=== PATIENT | male | born 1935 | race Caucasian/White ===

== ENCOUNTER 2017-02-16 14:34 | Inpatient (IN) | payer MEDICARE, MEDICAID ==
[2017-02-16 14:42] VITALS: BMI 26.6
[2017-02-16 15:15] LABS: ADD MANUAL DIFF? NO
[2017-02-16] MEDS ORDERED: Sodium Chloride 0.9% 1,000 ML IV SCH ×2 (15:15→18:45)
[2017-02-16 15:36] LABS: BASO # 0.02 K/mm3 (0.0-2.0); BASO % 0.3 % (0.0-3.0); EOS # 0.1 (0.0-0.7); EOS % 1.2 % (1.5-5.0); GRAN # 4.01 (1.4-6.5); GRAN % 69.5 % (50.0-68.0); HEMATOCRIT 24.7 % (42.0-52.0); LYMPH # 1.3 (1.2-3.4); LYMPH % 22.8 % (22.0-35.0); MEAN CELL VOLUME 90.8 fL (80.0-105.0); MEAN CORPUSCULAR HEMOGLOBIN 28.3 pg (25.0-35.0); MEAN CORPUSCULAR HGB CONC 31.2 g/dl (31.0-37.0); MEAN PLATELET VOLUME 9.9 fl (7.0-11.0); MONO # 0.4 (0.1-0.6); MONO % 6.2 % (1.0-6.0); PLATELET COUNT 269 10^3/uL (120.0-450.0); RED CELL DISTRIBUTION WIDTH 14.1 % (11.5-14.5); WHITE BLOOD COUNT 5.8 10^3/ul (4.5-11.0)
--- NOTE | 2017-02-16 15:44 | CT ---
PROCEDURE: CT HEAD WITHOUT CONTRAST. HISTORY: syncope COMPARISON: None available. TECHNIQUE: Axial computed tomography images were obtained through the head/brain without intravenous contrast. Radiation dose: Total exam DLP = 724 mGy-cm. This CT exam was performed using one or more of the following dose reduction techniques: Automated exposure control, adjustment of the mA and/or kV according to patient size, and/or use of iterative reconstruction technique. FINDINGS: HEMORRHAGE: No intracranial hemorrhage. BRAIN: No mass effect or edema. No atrophy or chronic microvascular ischemic changes. VENTRICLES: Unremarkable. No hydrocephalus. CALVARIUM: Unremarkable. PARANASAL SINUSES: Unremarkable as visualized. No significant inflammatory changes. MASTOID AIR CELLS: Unremarkable as visualized. No inflammatory changes. OTHER FINDINGS: None. IMPRESSION: No acute finding
[2017-02-16 15:46] LABS: ALB/GLOB RATIO 1.1 (1.1-1.8); ALKALINE PHOSPHATASE 75 U/L (38-133); ALT/SGPT 25 U/L (7-56); AST/SGOT 23 U/L (15-59); BILIRUBIN,TOTAL 0.5 mg/dL (0.2-1.3); BLOOD UREA NITROGEN 24 mg/dL (7-21); CALCIUM 9.1 mg/dL (8.4-10.5); CARBON DIOXIDE 29 mmol/L (21-33); CHLORIDE 102 mmol/L (98-107); GFR AFRICAN-AMERICAN 47; GLUCOSE,RANDOM 119 mg/dL (70-110); MAGNESIUM 2.1 mg/dL (1.7-2.2); POTASSIUM 4.4 mmol/L (3.6-5.0); SODIUM 137 mmol/L (132-148); TOTAL PROTEIN 7.5 g/dL (5.8-8.3)
[2017-02-16 16:00] LABS: TROPONIN I < 0.01 ng/mL
--- NOTE | 2017-02-16 16:38 | ED PDOC ---
Arrival/HPI - General Chief Complaint: Syncope Time Seen by Provider: 02/16/17 14:48 - History of Present Illness Narrative History of Present Illness (Text): 02/16/17 16:40 81 year old male whose past medical history includes coronary bypass approximately 10 years ago, cardiac stents, GI bleed, presents to the emergency department with laila for witnessed syncopal episode at daycare prior to arrival. Grandson states he was sitting in the car when the episode occurred. Patient denies any symptoms prior to the episode. Grandson states he saw a doctor for the first time yesterday and his hemoglobin was 8+. Patient has history of GI bleed Time/Duration: Prior to Arrival Symptom Onset: Sudden Symptom Course: Resolved Associated Symptoms (Text): None Past Medical History - Provider Review Nursing Documentation Reviewed: Yes - Infectious Disease Hx of Infectious Diseases: None - Cardiac Hx Hypertension: Yes - HEENT Hx Deafness: Yes - Hematological/Oncological Hx Anemia: Yes - Psychiatric Hx Substance Use: No Family/Social History - Physician Review Nursing Documentation Reviewed: Yes Family/Social History: Unknown Family HX Smoking Status: Unknown If Ever Smoked Hx Alcohol Use: No Hx Substance Use: No Allergies/Home Meds Allergies/Adverse Reactions: Allergies No Known Allergies Allergy (Verified 02/16/17 23:35) No Known Allergies Home Medications: Home Meds Medication Instructions Recorded Confirmed Unobtainable 02/16/17 02/16/17 Review of Systems - Physician Review All systems were reviewed & negative as marked: Yes - Review of Systems Respiratory: absent: SOB Cardiovascular: Syncope. absent: Chest Pain Neurological: absent: Headache, Dizziness Physical Exam Vital Signs Reviewed: Yes Vital Signs Temp Pulse Resp BP Pulse Ox 02/16/17 20:30 98.2 F 67 18 134/69 02/16/17 20:18 98.2 F 65 16 131/60 02/16/17 14:35 101 H 18 94/48 L 95 Blood Pressure: Normal Pulse: Regular Respiratory Rate: Normal Appearance: Positive for: Well-Appearing, Non-Toxic, Comfortable Pain Distress: None Mental Status: Positive for: Alert and Oriented X 3 Finger Stick Blood Glucose: 159 - Systems Exam Head: Present: Atraumatic, Normocephalic Pupils: Present: PERRL Extroacular Muscles: Present: EOMI Conjunctiva: Present: Normal Mouth: Present: Moist Mucous Membranes Neck: Present: Normal Range of Motion Respiratory/Chest: Present: Clear to Auscultation, Good Air Exchange, Other ( Midline surgical scar). No: Respiratory Distress, Accessory Muscle Use Cardiovascular: Present: Regular Rate and Rhythm, Normal S1, S2. No: Murmurs Abdomen: Present: Normal Bowel Sounds. No: Tenderness, Distention, Peritoneal Signs Back: Present: Normal Inspection Upper Extremity: Present: Normal Inspection. No: Cyanosis, Edema Lower Extremity: Present: Normal Inspection. No: Edema Neurological: Present: GCS=15, CN II-XII Intact, Speech Normal Skin: Present: Warm, Dry, Normal Color. No: Rashes Psychiatric: Present: Alert, Oriented x 3, Normal Insight, Normal Concentration Medical Decision Making ED Course and Treatment: Impression: 81 year old male whose past medical history includes cardiac stents , GI bleed, presents to the emergency department with witnessed syncopal episode at daycare prior to arrival. Differential Diagnosis included but are not limited to: Plan: -- CT head, EKG, Chest X-ray -- Zofran -- IV fluids -- Labs -- Reassess and disposition Progress Notes: CT Head Shearer Helper: Ciro Mclean MD IMPRESSION: No acute findings - Lab Interpretations Lab Results: 02/16/17 14:50 02/16/17 14:50 Lab Results 02/16/17 16:05: Blood Type Confirm O POSITIVE 02/16/17 15:25: Blood Type O POSITIVE, Antibody Screen Negative, Crossmatch See Detail, BBK History Checked No verified bt 02/16/17 14:50: Sodium 137, Potassium 4.4, Chloride 102, Carbon Dioxide 29, Anion Gap 10, BUN 24 H, Creatinine 1.7 H, Est GFR ( Amer) 47, Est GFR ( Non-Af Amer) 39, Random Glucose 119 H, Calcium 9.1, Magnesium 2.1, Total Bilirubin 0.5, AST 23, ALT 25, Alkaline Phosphatase 75, Lactate Dehydrogenase 388, Total Creatine Kinase 81, Troponin I < 0.01, Total Protein 7.5, Albumin 4.0 , Globulin 3.5, Albumin/Globulin Ratio 1.1 02/16/17 14:50: WBC 5.8, RBC 2.72 L, Hgb 7.7 L, Hct 24.7 L, MCV 90.8, MCH 28.3, MCHC 31.2, RDW 14.1, Plt Count 269, MPV 9.9, Gran % 69.5 H, Lymph % (Auto) 22.8 , [place] % (Auto) 6.2 H, Eos % (Auto) 1.2 L, Baso % (Auto) 0.3, Gran # 4.01, Lymph # 1.3, Alger # 0.4, Eos # 0.1, Baso # 0.02 02/16/17 14:48: Iron 38 L, TIBC 364, % Saturation 10 L - RAD Interpretation Radiology Orders: 02/16/17 14:49 HEAD W/O CONTRAST [CT] Stat CHEST PORTABLE [RAD] Stat Sales Order Clerk: Radiologist - EKG Interpretation EKG Interpretation (Text): EKG shows NSR at 60 BPM with PVC's, otherwise normal, interpreted by me. Interpreted by ED Physician: Yes Type: 12 lead EKG - Medication Orders Current Medication Orders: Acetaminophen (Tylenol 325mg Tab) 650 mg PO Q6H PRN PRN Reason: Fever >100.4 F Sodium Chloride (Sodium Chloride 0.9%) 1,000 mls @ 70 mls/hr IV .[id number] [facility] Last Admin: 02/17/17 03:51 Dose: 70 mls/hr Ondansetron HCl (Zofran Inj) 4 mg IVP Q6H PRN PRN Reason: Nausea/Vomiting Discontinued Medications Sodium Chloride (Sodium Chloride 0.9%) 1,000 mls @ 100 mls/hr IV .Q10H [facility] Last Admin: 02/16/17 15:28 Dose: 100 mls/hr Ondansetron HCl (Zofran Inj) 8 mg IVP STAT STA Stop: 02/16/17 15:08 Last Admin: 02/16/17 15:28 Dose: 8 mg - Scribe Statement The provider has reviewed the documentation as recorded by the Ewa Sutton Provider Scribe Attestation: All medical record entries made by the Ewa were at my direction and personally dictated by me. I have reviewed the chart and agree that the record accurately reflects my personal performance of the history, physical exam, medical decision making, and the department course for this patient. I have also personally directed, reviewed, and agree with the discharge instructions and disposition. Disposition/Present on Arrival - Present on Arrival Any Indicators Present on Arrival: No History of DVT/PE: No History of Uncontrolled Diabetes: No Urinary Catheter: No History of Decub. Ulcer: No History Surgical Site Infection Following: None - Disposition Have Diagnosis and Disposition been Completed?: Yes Diagnosis: Syncope, Anemia Disposition: HOSPITALIZED Disposition Time: 16:30 Condition: STABLE
--- NOTE | 2017-02-16 17:58 | RAD ---
HISTORY: Syncope. Portable study 16:32. COMPARISON: No prior. FINDINGS: LUNGS: No active pulmonary disease. PLEURA: No significant pleural effusion identified, no pneumothorax apparent. CARDIOVASCULAR: Cardiomegaly. No evidence of acute, significant cardiovascular disease. OSSEOUS STRUCTURES: No significant abnormalities. VISUALIZED UPPER ABDOMEN: Normal. OTHER FINDINGS: None. IMPRESSION: No active disease.
[2017-02-16 20:08] LABS: IRON 38 ug/dL (45-180)
[2017-02-17 01:54] LABS: PH,URINE 6.5 (4.7-8.0); URINE BILIRUBIN NEGATIVE (NEGATIVE); URINE BLOOD NEGATIVE (NEGATIVE); URINE GLUCOSE (UA) NEGATIVE (NEGATIVE); URINE KETONE NEGATIVE (NEGATIVE); URINE LEUKOCYTE ESTERASE NEGATIVE Leu/uL (NEGATIVE); URINE PROTEIN NEGATIVE mg/dL (<30 mg/dL); URINE UROBILINOGEN 0.2 E.U./dL (<1 E.U./dL)
[2017-02-17 02:00] LABS: URINE APPEARANCE CLEAR (CLEAR); URINE COLOR YELLOW (YELLOW)
[2017-02-17 07:45] LABS: HEMATOCRIT 25.2 % (42.0-52.0); MEAN CELL VOLUME 88.7 fL (80.0-105.0); MEAN CORPUSCULAR HEMOGLOBIN 28.2 pg (25.0-35.0); MEAN CORPUSCULAR HGB CONC 31.7 g/dl (31.0-37.0); MEAN PLATELET VOLUME 9.3 fl (7.0-11.0); RED CELL DISTRIBUTION WIDTH 15.4 % (11.5-14.5); WHITE BLOOD COUNT 5.5 10^3/ul (4.5-11.0)
[2017-02-17 08:04] LABS: BLOOD UREA NITROGEN 22 mg/dL (7-21); CALCIUM 8.5 mg/dL (8.4-10.5); CARBON DIOXIDE 27 mmol/L (21-33); CHLORIDE 107 mmol/L (95-110); GFR AFRICAN-AMERICAN > 60; GLUCOSE,RANDOM 87 mg/dL (70-110); POTASSIUM 5.1 mmol/L (3.6-5.0); SODIUM 139 mmol/L (132-148)
--- NOTE | 2017-02-17 08:18 | CON ---
DATE: 02/17/2017 INDICATIONS: Syncope, severe anemia. HISTORY OF PRESENT ILLNESS: This is an 81-year-old Montenegrin speaking male admitted yesterday through the Emergency Room after he passed out in his car. Apparently he has known severe anemia, but has had no workup as yet. He was found to have a hemoglobin of 7. Rectal exam was negative in the ER. He was transfused 2 units of blood. Today, he is in the telemetry unit. There is no chest pain, shortness of breath, orthopnea, PND, palpitations, edema. No fever , chills, cough, sputum production or hemoptysis. No abdominal pain, nausea, vomiting, diarrhea, constipation, or melena. PAST MEDICAL HISTORY: Limited due to the Montenegrin language. He has known coronary artery disease and remote coronary bypass operation, he has had a stent in the past. He has a history of hypertension and severe anemia. There is no history of rheumatic fever, congestive heart failure, myocardial infarction, diabetes, stroke, TIA, or gout. MEDICATIONS: On admission are unknown at this time. He is getting Tylenol, Zofran and IV fluids. ALLERGIES: There are no medication allergies reported. SOCIAL HISTORY: He does not smoke. He does not drink. He lives at home with his family. He is ambulatory. REVIEW OF SYSTEMS: A 10-point review of systems is unavailable because of language barrier. PHYSICAL EXAMINATION: GENERAL: He is a well-developed male in no acute distress, lying in bed on telemetry. VITAL SIGNS: He is in sinus rhythm to sinus bradycardia at 61 beats per minute , afebrile. Blood pressure 119/51, respirations 18-20, O2 sat 93%-95% on room air. HEENT: Reveals no neck vein distention, thyromegaly, or carotid bruits. Mucous membranes are moist. Conjunctivae pale. NECK: Supple. LUNGS: Min clear. HEART: Revealed normal first and second heart sounds. ABDOMEN: Soft, bowel sounds present. No mass, organomegaly, tenderness, rebound, guarding, CVA tenderness or palpable abdominal aortic aneurysm. EXTREMITIES: Revealed no cyanosis, clubbing, or edema. NEUROLOGIC: He is awake and alert. PSYCHIATRIC: Normal as to mood and affect. SKIN: Warm and dry. No rash or cellulitis. LABORATORY AND IMAGING: Chest x-ray, a portable study, reveals no active disease. EKG demonstrates regular sinus rhythm, PVCs, right ventricular conduction delay. CT scan of the head reveals no acute disease. White count normal, platelet count normal, hemoglobin 7.7, hematocrit 24.7 pre-transfusion. Electrolytes: BUN unremarkable, creatinine 1.7, blood sugar 119. LFTs unremarkable. CK 81, troponin less than 0.01. Urinalysis is unremarkable. IMPRESSION: The patient is an 81-year-old man with known coronary bypass surgery, a limited historian because of language, admitted with syncope, found to have severe anemia which is somewhat chronic. He has received 2 units blood transfusion. He is on telemetry. No arrhythmia has been demonstrated. We should attempt to get old records. I will order an echocardiogram. Stool should be checked for occult blood. We will check postural vital signs. He will have a neuro workup, he should have a GI workup. We will monitor H and H, as well as labs and I and O. I will follow along with you. I will make additional recommendations based on his clinical course. Suman Arellano MD cc: [id number] TT: 02/17/2017 08:17:24 Confirmation # [id number] Dictation # [id number] jn MTDHarshil
[2017-02-17 10:59] LABS: ADD MANUAL DIFF? NO
[2017-02-17 11:00] LABS: BASO # 0.01 K/mm3 (0.0-2.0); BASO % 0.2 % (0.0-3.0); EOS # 0.1 (0.0-0.7); EOS % 0.9 % (1.5-5.0); GRAN # 4.11 (1.4-6.5); GRAN % 77.6 % (50.0-68.0); HEMATOCRIT 26.7 % (42.0-52.0); LYMPH # 0.8 (1.2-3.4); LYMPH % 14.9 % (22.0-35.0); MEAN CELL VOLUME 89.3 fL (80.0-105.0); MEAN CORPUSCULAR HEMOGLOBIN 27.8 pg (25.0-35.0); MEAN CORPUSCULAR HGB CONC 31.1 g/dl (31.0-37.0); MEAN PLATELET VOLUME 9.5 fl (7.0-11.0); MONO # 0.3 (0.1-0.6); MONO % 6.4 % (1.0-6.0); PLATELET COUNT 199 10^3/uL (120.0-450.0); RED CELL DISTRIBUTION WIDTH 15.6 % (11.5-14.5); WHITE BLOOD COUNT 5.3 10^3/ul (4.5-11.0)
[2017-02-17 12:02] LABS: FOLATE 12.7 ng/mL
--- NOTE | 2017-02-17 14:13 | CARD ---
APPROVED REPORT EKG Measurement Heart [id number] CT 154P9 [id number] <Conclusion> Sinus rhythm with occasional premature ventricular complexes RSR' or QR pattern in V1 suggests right ventricular conduction delay Borderline ECG
--- NOTE | 2017-02-17 14:32 | CON ---
DATE: 02/17/2017 CHIEF COMPLAINT: Syncope. HISTORY OF PRESENT ILLNESS: An 81-year-old Iranian-speaking man with past medical history of hyperte nsion, history of anemia, history of coronary bypass, history of coronary artery disease status post stents, came in because he had passed out in his car. He was found to have had hemoglobin of 7.7 and was transfused 2 units. Currently hemoglobin today is 8.3. He denied any focal weakness, paresthes ias in the extremities. He is able to follow commands. CT head showed no acute intracranial abnorma lities. PAST MEDICAL HISTORY: He has history of known coronary artery disease, status post CABG and stent, h istory of hypertension, anemia. SOCIAL HISTORY: No illicit drug use, smoking or ETOH abuse. ALLERGIES: No known drug allergies. CURRENT MEDICATIONS: Reviewed via nurse's reconciliation sheet. REVIEW OF SYSTEMS: A 14-point review of systems is negative except for the HPI. PHYSICAL EXAMINATION: VITAL SIGNS: Temperature of 97.9, pulse rate 77, blood pressure 130/65, respiratory rate of 18. GENERAL: The patient is sitting up in bed in no acute distress. HEENT: Atraumatic, normocephalic. PERRLA. Extraocular muscles intact. NECK: Supple, no JVD, no adenopathy noted. LUNGS: Clear to auscultation. No adventitious sounds. HEART: S1, S2, normal rate and rhythm. No murmurs, rubs, or gallops. ABDOMEN: Soft, nontender, nondistended. Bowel sounds are present. EXTREMITIES: No clubbing, no cyanosis. Peripheral pulses 2+ felt bilaterally. NEUROLOGIC: The patient is alert, oriented to person, place, month and year. Speech is fluent, with out any errors. Cranial nerves II through XII are intact. MOTOR: Moves all extremities equally. Toes downgoing bilaterally. DTRs 2+ throughout and 1 at the ankles. COORDINATION: Rdvidz-pv-sdyd intact. GAIT: Deferred for now. LABORATORIES: Hemoglobin is 8.3, hematocrit 26.7, platelet count of 199. Sodium is 139, potassium 5 .1, chloride of 107, carbon dioxide 27, BUN of 22, creatinine 1.2, random glucose of 87. ASSESSMENT AND PLAN: This is an 85-gdeh-qqg-male history of coronary artery disease, status post cor onary artery bypass graft and cardiac stents, hypertension, anemia who presented with syncopal episod e where he was passed out in the car, found to have a hemoglobin of 7.7, was transfused 2 units of bl ood, now 8.3 today. He also has had a drop in systolic and diastolic blood pressures. Syncope is li tavia secondary to transient cerebral hypoperfusion to the brain, superimposed on underlying severe an emia. He has also iron deficiency anemia. AT THIS TIME, RECOMMEND: 1. IV hydration. 2. Evaluate the cause for his type of anemia and monitor his H and H. 3. Continue current present cardiac management and monitor his electrolytes accordingly. Once again, thank you for this consult. No further neurological workup needed at this time. Sean Hoffman MD cc: [id number] TT: 02/17/2017 14:31:50 Confirmation # [id number] Dictation # [id number] jn
--- NOTE | 2017-02-17 20:06 | HP ---
HISTORY OF PRESENT ILLNESS: This is 81-year-old male who was examined at his bedside. His case was reviewed in detail with his nurse, Adrienne Brenner. The patient was seen earlier today by Dr. Suman Arellano from cardiology and the patient is awaiting a 2D echocardiogram of the heart. He presented t o the [facility] ER after having a syncopal episode while sitting in his grandson's car a nd denying any chest pain, palpitation or shortness of breath. In the [facility] ER, he was noted to have advanced anemia which on further blood testing was consistent with iron deficiency and the patient has had no GI workup in his recent past. His stool was guaiac negative in the ER. H e denies any hematemesis or melena and also was noted to be hypotensive and was treated with IV fluid s. On admission, his hemoglobin was 7. He received 2 units of blood with IV fluids. His hemoglobin today is 8.3 and the nursing staff reports he has not had any hematemesis, melena, or bowel movement s or bright red blood per rectum. PAST MEDICAL HISTORY: The patient has a past medical history of atherosclerotic heart disease, statu s post coronary artery bypass and coronary stents. He has a history of chronic hypertension. OUTPATIENT MEDICATIONS: There were no reports of any outpatient medication listed. ALLERGIES: He denies any allergies to medication. SOCIAL HISTORY: He is a current nondrinker, nonsmoker, non-IV drug misuser. He is a retired gentlem an and currently is receiving IV fluids, oral Tylenol and IV Zofran p.r.n. nausea and vomiting. REVIEW OF SYSTEMS: HEAD: Recent syncope. EYES: No change in visual acuity. EARS: No hearing loss. THROAT: No swallowing difficulty. NECK: No stiffness. CARDIOVASCULAR: He has a history of atherosclerotic heart disease, coronary artery bypass and stents . PULMONARY: No cough, no hemoptysis. GASTROINTESTINAL: No reports of hematemesis, melena, or GI bleeding. GENITOURINARY: No dysuria. SKIN: Without rash. NEUROLOGICAL: Syncope. VASCULAR: No reports of claudication. ENDOCRINE: No knowledge of diabetes mellitus. FAMILY HISTORY: Noncontributory. PHYSICAL EXAMINATION: GENERAL: At present, the patient is alert, lying in his bed in a normal sinus rhythm on the surveillance system monitor. VITAL SIGNS: Temperature 97.9, respirations 18, pulse 77, and blood pressure 138/65 with a pulse ox of 94% on room air. HEENT: Normocephalic, atraumatic. Eyes: No icterus. Ears clear. Throat not injected. NECK: Supple. HEART: Regular S1, S2. LUNGS: Clear. ABDOMEN: Soft, without palpable organomegaly, no rebound, no guarding, no tenderness. EXTREMITIES: No clubbing, no cyanosis, no edema. SKIN: Without rash, now with good turgor. VASCULAR: Legs warm to touch. PSYCHOLOGICAL: Alert. NEUROLOGIC: Intact. GENITOURINARY: Rectal exam and stool for occult blood done in the ER by Dr. Adalid Martinez is gua iac negative. CURRENT LABORATORY DATA: Admission white count 5800, hemoglobin 7.7, hematocrit 24.7, platelets 269, 000. Currently, white count 5300, hemoglobin 8.3, hematocrit 26.7, platelets 199,000. Sodium 139, K 5.1, chloride 107, bicarbonate 27, BUN 22, creatinine 1.2, random blood sugar is 87. Iron level was low at 38. TIBC 364, percent saturation 10 low, ferritin 12.6. Bilirubin 0.5, AST 23, ALT 25, cain line phosphatase 75. CPK normal at 81, troponin less than 0.01. B12 normal 752. Folic acid normal at 12.7. Urinalysis unremarkable. Chest x-ray showed no active disease. Head CT showed no acute fi ndings. IMPRESSION: An 81-year-old male status post a syncopal episode with history of atherosclerotic heart disease and also with iron deficiency anemia with no knowledge of recent GI workup. PLAN: To await cardiac workup, consultation by Dr. Suman Arellano. Neuro evaluation by Dr. Sean marques. I will place a GI consultation with Dr. Quiñones. The patient will receive an additional 2 uni ts of blood. I have instructed his nurse to check stool for occult blood. The patient will have a C BC and basic metabolic panel in the a.m. His IV fluids have been discontinued. He will receive 2 ad ditional units of packed red blood cells. He is awaiting a serum immunoelectrophoresis panel. He re guerrero on a heart healthy diet, fall risk protocol, neuro checks q. shift and physical therapy evaluat ion. The plan is that the patient will return home with his grandson with whom he lives upon clearan ce by GI, neuro and cardiology, and his overall prognosis remains guarded at present. Greater than 60 minutes was spent in the care, coordination of care, review of care for this new admi ssion. All of the above was reviewed with the patient and his nursing staff and co-consultants today . Sonia Larson MD cc: [phone] TT: 02/17/2017 20:06:14 mn
--- NOTE | 2017-02-18 07:33 | CP.PCM.PN ---
Subjective - Date & Time of Evaluation Date of Evaluation: 02/18/17 Time of Evaluation: 07:00 - Subjective Subjective: Stable on 2R,S/P 3rd and 4th unit RBC's. No CP or SOB. + dizzy at times. V/S noted. PE: Lungs: clear Cor.: S1S2, 2/6, SYLVESTER Abd.: soft Ext.: no edema Neuro.; alert Objective - Vital Signs/Intake and Output Vital Signs (last 24 hours): Temp Pulse Resp BP Pulse Ox 98.8 F 60 19 160/81 H 94 L 02/18/17 06:00 02/18/17 06:00 02/18/17 06:00 02/18/17 06:00 02/18/17 06:00 Intake and Output: 02/18/17 02/18/17 06:59 18:59 Intake Total 2763 Output Total 1100 Balance 1663 - Medications Medications: Current Medications Acetaminophen (Tylenol 325mg Tab) 650 mg PO Q6H PRN PRN Reason: Fever >100.4 F Ondansetron HCl (Zofran Inj) 4 mg IVP Q6H PRN PRN Reason: Nausea/Vomiting - Labs Labs: 02/17/17 10:57 02/17/17 07:35 Assessment and Plan - Assessment and Plan (Free Text) Plan: Assessment: Syncope Anemia CAD/CABG HBP Plan: Will check echo Await AM labs Check postural V/S Fall Risk: Ambulate with assistance As per GI, neuro., Dr. Larson
[2017-02-18 08:03] LABS: HEMATOCRIT 35.1 % (42.0-52.0); MEAN CELL VOLUME 87.5 fL (80.0-105.0); MEAN CORPUSCULAR HEMOGLOBIN 27.7 pg (25.0-35.0); MEAN CORPUSCULAR HGB CONC 31.6 g/dl (31.0-37.0); MEAN PLATELET VOLUME 9.6 fl (7.0-11.0); RED CELL DISTRIBUTION WIDTH 16.1 % (11.5-14.5); WHITE BLOOD COUNT 4.8 10^3/ul (4.5-11.0)
[2017-02-18 08:24] LABS: BLOOD UREA NITROGEN 16 mg/dL (7-21); CALCIUM 9.4 mg/dL (8.4-10.5); CARBON DIOXIDE 30 mmol/L (21-33); CHLORIDE 105 mmol/L (98-107); GFR AFRICAN-AMERICAN > 60; GLUCOSE,RANDOM 90 mg/dL (70-110); POTASSIUM 4.7 mmol/L (3.6-5.0); SODIUM 141 mmol/L (132-148)
--- NOTE | 2017-02-18 08:26 | CARD ---
APPROVED REPORT EXAM: Two-dimensional and M-mode echocardiogram with Doppler and color Doppler. Other Information Quality : AverageRhythm : INDICATION Syncope 2D DIMENSIONS IVSd1.1 (0.7-1.1cm)LVDd4.9 (3.9-5.9cm) LVOT Diameter1.9 (1.8-2.4cm)PWd1.1 (0.7-1.1cm) LVDs3.1 (2.5-4.0cm)FS (%) 36.5 % LVEF (%)66.0 (>50%) M-Mode DIMENSIONS Left Atrium (MM)4.00 (2.5-4.0cm)Aortic Root3.80 (2.2-3.7cm) Aortic Cusp Exc.1.60 (1.5-2.0cm) Aortic Valve AoV Peak Fmrsgzeu113.0cm/sAoV VTI45.0cmAO Peak GR.17mmHg LVOT Peak Ipihowsv050.0cm/sLVOT VTI31.40cmAO Mean GR.9mmHg CHATA (VMAX)2.13lj1FWC (VTI)1.65zb3PR P 1/2 Tksu200hv Mitral Valve MV E Zoqaahhe833.0cm/sMV A Ofvobgsv024.0cm/sE/A ratio0.9 TDI Lateral E' Peak V7.52cm/sMedial E' Peak V7.10cm/sE/Lateral E'13.4 E/Medial E'14.2 Tricuspid Valve TR Peak Navysfam127wv/sRAP ZFBUPGIL84cmXfVW Peak Gr.28mmHg RYLW79lhLo LEFT VENTRICLE The left ventricle is normal size. There is normal left ventricular wall thickness. The left ventricular function is normal. The left ventricular ejection fraction is within the normal range. There is normal LV segmental wall motion. RIGHT VENTRICLE The right ventricle is normal size. ATRIA The left atrium size is normal. The right atrium size is normal. The interatrial septum is intact with no evidence for an atrial septal defect. AORTIC VALVE The aortic valve is moderately calcified. There is mild aortic regurgitation. MITRAL VALVE The mitral valve is mildly thickened but opens well. Mitral annular calcification is moderate. Mitral regurgitation is trace. TRICUSPID VALVE The tricuspid valve is normal in structure. There is trace tricuspid regurgitation. PULMONIC VALVE The pulmonic valve is not well visualized. GREAT VESSELS The aortic root is normal in size. PERICARDIAL EFFUSION There is no pericardial effusion. <Conclusion> The left ventricle is normal size. There is normal left ventricular wall thickness. The left ventricular function is normal. The aortic valve is moderately calcified. Aortic sclerosis vs. mild . There is mild aortic regurgitation.
--- NOTE | 2017-02-18 14:10 | CP.PCM.CON ---
<Jt Rivero - Last Filed: 02/18/17 14:06> History of Present Illness - History of Present Illness History of Present Illness: GI consult for Dr. Quiñones 81 year old male whose past medical history includes coronary bypass approximately 10 years ago, cardiac stents, GI bleed, presents [facility] with syncopal episode at daycare. Per records, he was sitting in the car when the episode occurred. Patient denies any symptoms prior to the episode. Patient has history of GI bleed. Upon admission hbg was 8. Transfused. Hgb imporved to 11. Pt denies F/C/N/V/D/CP/SOB/hematochezia/hematemesis/melena/hematuria. Review of Systems - Review of Systems Review of Systems: See HPI Past Patient History - Infectious Disease Hx of Infectious Diseases: None - Past Social History Smoking Status: Unknown If Ever Smoked - CARDIAC Hx Cardiac Disorders: Yes (CABG, stents) Hx Hypertension: Yes - PULMONARY Hx Respiratory Disorders: No - NEUROLOGICAL Hx Neurological Disorder: Yes Hx Dizziness: Yes - HEENT Hx Deafness: Yes - RENAL Hx Chronic Kidney Disease: No - ENDOCRINE/METABOLIC Hx Endocrine Disorders: Yes Hx Hypothyroidism: Yes - HEMATOLOGICAL/ONCOLOGICAL Hx Anemia: Yes - INTEGUMENTARY Hx Dermatological Problems: No - MUSCULOSKELETAL/RHEUMATOLOGICAL Hx Musculoskeletal Disorders: Yes Hx Arthritis: Yes Hx Falls: Yes Hx Unsteady Gait: Yes - GASTROINTESTINAL Hx Gastrointestinal Disorders: Yes (Constipation) - GENITOURINARY/GYNECOLOGICAL Hx Genitourinary Disorders: No - PSYCHIATRIC Hx Substance Use: No - SURGICAL HISTORY Hx Surgeries: Yes Hx Coronary Stent: Yes Hx Open Heart Surgery: Yes Meds Allergies/Adverse Reactions: Allergies Allergy/AdvReac Type Severity Reaction Status Date / Time No Known Allergies Allergy No Known Verified 02/16/17 23:35 Allergies - Medications Medications: Current Medications Acetaminophen (Tylenol 325mg Tab) 650 mg PO Q6H PRN PRN Reason: Fever >100.4 F Ondansetron HCl (Zofran Inj) 4 mg IVP Q6H PRN PRN Reason: Nausea/Vomiting Physical Exam - Constitutional Appears: No Acute Distress - Head Exam Head Exam: ATRAUMATIC, NORMAL INSPECTION, NORMOCEPHALIC - Eye Exam Eye Exam: EOMI, Normal appearance, PERRL Pupil Exam: NORMAL ACCOMODATION, PERRL - ENT Exam ENT Exam: Mucous Membranes Moist, Normal Exam - Neck Exam Neck exam: Positive for: Normal Inspection - Respiratory Exam Respiratory Exam: Clear to Auscultation Bilateral, NORMAL BREATHING PATTERN - Cardiovascular Exam Cardiovascular Exam: REGULAR RHYTHM - GI/Abdominal Exam GI & Abdominal Exam: Normal Bowel Sounds, Soft. absent: Distended, Tenderness - Rectal Exam Rectal Exam: NORMAL INSPECTION. absent: Black Stool, Bloody Stool, Hemorrhoids , Fecal Impaction Additional comments: Brown stool, no mass, normal sphincter tone. - Exam Exam: NORMAL INSPECTION - Extremities Exam Extremities exam: Positive for: full ROM, normal inspection - Back Exam Back exam: NORMAL INSPECTION - Neurological Exam Neurological exam: Alert, CN II-XII Intact, Normal Gait, Oriented x3, Reflexes Normal - Psychiatric Exam Psychiatric exam: Normal Affect, Normal Mood - Skin Skin Exam: Dry, Intact, Normal Color, Warm Results - Vital Signs Recent Vital Signs: Last Vital Signs Temp 97 F L 02/18/17 11:21 Pulse 55 L 02/18/17 11:21 Resp 14 02/18/17 11:21 BP 146/88 02/18/17 11:21 Pulse Ox 94 L 02/18/17 06:00 - Labs Result Diagrams: 02/18/17 07:30 02/18/17 07:30 Labs: Laboratory Results - last 24 hr 02/18/17 02/18/17 07:30 07:30 WBC 4.8 RBC 4.01 Hgb 11.1 L Hct 35.1 L MCV 87.5 MCH 27.7 MCHC 31.6 RDW 16.1 H Plt Count 212 MPV 9.6 Sodium 141 Potassium 4.7 Chloride 105 Carbon Dioxide 30 Anion Gap 11 BUN 16 Creatinine 0.9 Est GFR ( Amer) > 60 Est GFR (Non-Af Amer) > 60 Random Glucose 90 Calcium 9.4 Assessment & Plan - Assessment and Plan (Free Text) Assessment: 81 m with pmh GI bleed, CAD s/p CABG, PCI and HTN came with Anemia with syncopal episode -MOnitor H/H transfuse as needed -CT w PO contrast -EGD and c-scope on pending cardiac clearance -Bowel prep on Sunday QUINTON Quiñones <Fabián Quiñones V - Last Filed: 02/19/17 11:15> Meds - Medications Medications: Current Medications Acetaminophen (Tylenol 325mg Tab) 650 mg PO Q6H PRN PRN Reason: Fever >100.4 F Ondansetron HCl (Zofran Inj) 4 mg IVP Q6H PRN PRN Reason: Nausea/Vomiting Results - Vital Signs Recent Vital Signs: Last Vital Signs Temp 98.0 F 02/19/17 06:00 Pulse 61 02/19/17 09:00 Resp 18 02/19/17 09:00 BP 150/77 02/19/17 09:00 Pulse Ox 97 02/19/17 09:00 - Labs Result Diagrams: 02/19/17 06:30 02/18/17 07:30 Labs: Laboratory Results - last 24 hr 02/19/17 06:30 WBC 5.9 D RBC 4.08 Hgb 11.4 L Hct 35.7 L MCV 87.5 MCH 27.9 MCHC 31.9 RDW 15.3 H Plt Count 209 MPV 9.3 Attending/Attestation - Attestation I have personally seen and examined this patient.: Yes I have fully participated in the care of the patient.: Yes I have reviewed all pertinent clinical information: Yes Notes (Text): 02/18/17 22:06 Dr Quiñones This patient was seen evaluated with resident Dr. Rivero earlier. I spoke with Dr Larson later. Family,grandson wants GI workup as op through his international trade teacher. In view of significant anemia would request ct abd and pelvis with po contrast only. WI done by me revealed only brown stool. We will advance the diet and cancel endo/colon as IP continue cardiology followup PPI Followup of Hb/Hct
[2017-02-18] MEDS ORDERED: Sodium Chloride 0.9% 1,000 ML IV SCH (14:15)
--- NOTE | 2017-02-18 14:28 | PN ---
DATE: 02/18/2017 This 81-year-old male remains hospitalized on the cardiac unit status post syncopal episode in the setting of severe iron deficiency anemia. The patient has been seen by cardiology and neurology. I have had a lengthy discussion with the patient's grandson, Johnnie, with whom he lives now in [place], [place]. He has just relocated from [place], [place] to his grandson's home in [facility] and is now going to be followed as an outpatient by a new physician in [place], [place] as well. The patient has received 4 units of packed red blood cells. Stool for occult blood in the Emergency Room was negative. His laboratories are consistent with iron deficiency and this was discussed in detail with his grandson, who was advised that the patient will need a GI workup when stable. The patient was seen in neurology consultation by Dr. Sean Hoffman, who felt that the basis of the syncope was on cerebral hypoperfusion in the setting of anemia and he has requested no further neurological workup at this time. The patient did complete a 2D echocardiogram that was interpreted by Dr. Suman Arellano from cardiology. The patient has normal left ventricular size, normal wall thickness, normal function , and mild aortic stenosis. PHYSICAL EXAMINATION: VITAL SIGNS: At present, he is in a normal sinus rhythm on the cardiac cath tech. Temperature 97, respirations 14, pulse 55, and blood pressure 146/88 and pulse ox 94% room air. HEAD: Normocephalic, atraumatic. EYES: No icterus. EARS: Clear. THROAT: Noninjected. NECK: Supple. HEART: S1, S2. No pathological rubs, murmurs, or gallops. LUNGS: Clear. ABDOMEN: Soft. EXTREMITIES: No edema. SKIN: Without rash. NEUROLOGICAL: Intact. PSYCHOLOGICAL: Alert. VASCULAR: Legs warm to touch. LABORATORIES: White count 4800, hemoglobin 11.1, hematocrit 35.1, platelets 212 ,000. Sodium 141, K 4.7, chloride 105, bicarb 30, BUN 16, creatinine 0.9, random blood sugar is 90. Iron level was low at 38, TIBC 364, percent saturation low 10%, ferritin 12.6. All liver function testing was normal including bilirubin 0.5, AST 23, ALT 25 and alk phos 75. CPK was normal at 81 and troponin was negative at less than 0.01. Vitamin B12 normal 752 and folic acid level normal 12.7. Urinalysis was unremarkable. CT of the head unremarkable. Chest x-ray, no active disease. EKG normal sinus rhythm. IMPRESSION: An 81-year-old male status post syncope in the setting of iron deficiency anemia which the patient and family are clearly aware needs to be managed with outpatient endoscopy, colonoscopy and GI followup. The patient also has a history of chronic hypertension, status post coronary artery bypass, status post coronary artery stents. PLAN: At present is to recheck his CBC in the a.m. He will have a GI consultation with Dr. Fabián Quiñones for completeness sake. He will be ambulated by physical therapy, both around the cardiac camacho and on staircase, and ultimate plan will be for discharge to the patient's family to provide 24- hour supervision and for followup with his primary care physician and GI specialist in [place], [place]. Greater than 50 minutes was spent in the care, coordination of care, and review of care with this patient, his family , co-consultants and nursing staff today. Prognosis remains stable at present. Sonia Larson MD cc: [id number] TT: 02/18/2017 14:27:33 Confirmation # [id number] Dictation # [id number] en MTDD
--- NOTE | 2017-02-19 07:30 | CP.PCM.PN ---
Subjective - Date & Time of Evaluation Date of Evaluation: 02/19/17 Time of Evaluation: 07:00 - Subjective Subjective: Stable on 2R,S/P 3rd and 4th unit RBC's. No CP or SOB. + dizzy at times. V/S noted. Postural V/S noted. No orthostasis. PE: Lungs: clear Cor.: S1S2, 2/6, SYLVESTER Abd.: soft Ext.: no edema Neuro.; alert I/O= 1040/500 Labs 02/18 noted. H/H 11.1/35.1 Echo: Nl LV, Aortic sclerosis vs. mild Objective - Vital Signs/Intake and Output Vital Signs (last 24 hours): Temp Pulse Resp BP Pulse Ox 98.0 F 56 L 20 155/78 H 97 02/19/17 06:00 02/19/17 06:00 02/19/17 06:00 02/19/17 06:00 02/19/17 06:00 Intake and Output: 02/19/17 02/19/17 06:59 18:59 Intake Total 480 Output Total 0 Balance 480 - Medications Medications: Current Medications Acetaminophen (Tylenol 325mg Tab) 650 mg PO Q6H PRN PRN Reason: Fever >100.4 F Ondansetron HCl (Zofran Inj) 4 mg IVP Q6H PRN PRN Reason: Nausea/Vomiting - Labs Labs: 02/18/17 07:30 02/18/17 07:30 Assessment and Plan - Assessment and Plan (Free Text) Plan: Assessment: Syncope Anemia/S/P 4 units RBCs tranfusions CAD/CABG HBP Plan: Await AM labs Fall Risk: Ambulate with assistance As per GI, neuro., Dr. Larson
[2017-02-19] MEDS ORDERED: Peg-Electrolyte Oral Soln 4L (Golytely) PO ONE (08:00)
[2017-02-19 08:01] LABS: HEMATOCRIT 35.7 % (42.0-52.0); MEAN CELL VOLUME 87.5 fL (80.0-105.0); MEAN CORPUSCULAR HEMOGLOBIN 27.9 pg (25.0-35.0); MEAN CORPUSCULAR HGB CONC 31.9 g/dl (31.0-37.0); MEAN PLATELET VOLUME 9.3 fl (7.0-11.0); RED CELL DISTRIBUTION WIDTH 15.3 % (11.5-14.5); WHITE BLOOD COUNT 5.9 10^3/ul (4.5-11.0)
[2017-02-19] MEDS ORDERED: Barium Sulfate Susp 2.1% w/v, 2.0% w/w 450 mL Bottle PO ONE (11:21)
--- NOTE | 2017-02-19 15:15 | CT ---
PROCEDURE: CT Abdomen and Pelvis without intravenous contrast HISTORY: Anemia, r/o GI bleed COMPARISON: None. TECHNIQUE: Without contrast. Contrast Dose: Radiation dose: Total exam DLP = 642 mGy-cm. This CT exam was performed using one or more of the following dose reduction techniques: Automated exposure control, adjustment of the mA and/or kV according to patient size, and/or use of iterative reconstruction technique. FINDINGS: LOWER THORAX: Unremarkable. LIVER: Unremarkable. No gross lesion or ductal dilatation. GALLBLADDER AND BILE DUCTS: Unremarkable. PANCREAS: Unremarkable. No gross lesion or ductal dilatation. SPLEEN: Unremarkable. ADRENALS: Unremarkable. No mass. KIDNEYS AND URETERS: Unremarkable. No hydronephrosis. No solid mass. Nonobstructing stones are seen in both kidneys measuring up to 3 mm in size VASCULATURE: Vascular stents are seen in the distal aorta and iliac arteries. BOWEL: Unremarkable. No obstruction. No gross mural thickening. APPENDIX: Unremarkable. Normal appendix. PERITONEUM: Unremarkable. No free fluid. No free air. LYMPH NODES: Unremarkable. No enlarged lymph nodes. BLADDER: Unremarkable. REPRODUCTIVE: Unremarkable. BONES: No acute fracture. OTHER FINDINGS: None. IMPRESSION: No acute intra-abdominal findings
--- NOTE | 2017-02-19 15:36 | PN ---
DATE: 02/19/2017 This 81-year-old male remains hospitalized on the cardiac unit. He has had no chest pain or shortness of breath and I have discussed his case in detail with his nurse and Dr. Fabián Quiñones from GI. The patient ruled out for myocardial infarction, was admitted with a syncopal episode in the setting of severe iron deficiency anemia, has received 4 units of packed red blood cells and stool for occult blood x 2 is negative. On physical exam, his hospital monitor shows normal sinus rhythm and the patient is being prepped for a CT of the abdomen with oral contrast only. PHYSICAL EXAMINATION: VITAL SIGNS: Monitor shows normal sinus rhythm. Temperature 97, respirations 18, pulse 61, and blood pressure 150/77 with a pulse ox of 97% on room air. HEAD: Normocephalic, atraumatic. EYES: No icterus. EARS: Clear. THROAT: Noninjected. NECK: Supple. HEART: Regular S1, S2. LUNGS: Clear. ABDOMEN: Soft. EXTREMITIES: No clubbing, no cyanosis, no edema. SKIN: Without rash. NEUROLOGICAL: Intact. PSYCHOLOGICAL: Alert. VASCULAR: Feet warm to touch. White count 5900, hemoglobin 11.4, hematocrit 35.7, platelets 209,000. Sodium 141, K 4.7, chloride 105, bicarb 30, BUN 16, creatinine 0.9, random blood sugar is 90. Urinalysis is unremarkable. IMPRESSION: An 81-year-old male status post a syncopal episode in the setting of severe iron deficiency anemia. PLAN: At present is to proceed with abdominal pelvic CT with oral contrast. He also is ordered to have Colace 100 mg p.o. daily. He remains on a heart healthy diet, neuro checks q. shift, fall precautions, physical therapy for ambulation safety and as discussed with Dr. Fabián Quiñones from GI in detail, the patient will be readied for discharge if his abdominal pelvic CT is within normal limits for an outpatient colonoscopy and endoscopy with his primary care physician in [place], [place] where he lives. All of this was discussed in detail with the patient's grandson, Johnnie, and greater than 50 minutes was spent in the care, coordination of care and review of care for this patient with himself, his family, his nurse and co-consultants from cardiology, neurology and gastroenterology. Prognosis is stable at present. Sonia Larson MD cc: [id number] TT: 02/19/2017 15:35:10 Confirmation # [id number] Dictation # [id number] en MTDD
--- NOTE | 2017-02-19 23:34 | PN ---
DATE: 02/19/2017 SUBJECTIVE: This patient was seen and evaluated earlier. The patient denies any specific GI complai nts now. Tolerating the diet. PHYSICAL EXAMINATION: VITAL SIGNS: Temperature 98.5, pulse 76, blood pressure is 176/87, respirations 16. HEENT: Atraumatic, anicteric. NECK: Supple. HEART: S1, S2 heard. LUNGS: Bilateral air entry present. ABDOMEN: Soft. There is no mass palpable. HEART: S1, S2 heard. LUNGS: Bilateral air entry present. ABDOMEN: Soft. EXTREMITIES: No edema, no cyanosis. LABORATORY DATA: Hemoglobin 11.4, hematocrit 35.7, WBC is 5.9, platelets 209. Chemistry is essentia lly otherwise unremarkable. CT scan of the abdomen and pelvis done, which was reviewed, and showed no acute finding. IMPRESSION: This 81-year-old patient admitted with syncopal episode, found to be severely anemic, tee d status post 4 units transfusion. He had no obvious bleeding per rectum noticed. No melena. No co mplaints of any abdominal pain. The patient clearly needs a gastrointestinal evaluation. At [facility], hemoglobin is stable. Will continue the proton pump inhibitor. The patient is supposed to have gastrointestinal workup. The patient's family wants to have the gastrointestinal workup as an outpa tient. The findings and followup recommendations explained to patient, who understands. Advised to follow up in our office. The patient strongly recommended to follow up with the steamer blocker f or an outpatient esophagogastroduodenoscopy and a colonoscopy soon. Fabián Quiñones MD cc: [id number] TT: 02/19/2017 23:33:33 Confirmation # [id number] Dictation # [id number] mario
[2017-02-20 06:36] VITALS: O2SAT 96
--- NOTE | 2017-02-20 11:44 | PN ---
DATE: 02/20/2017 Seen and examined at the bedside earlier today. The patient denies abdominal pain. Had a bowel move ment. No shortness of breath or chest pain. VITAL SIGNS: Temperature is 97.4, blood pressure 129/72, pulse 63, respirations 19, 96% on room air. No new labs are noted for today. PHYSICAL EXAMINATION: HEENT: Sclerae are anicteric. NECK: Supple. CARDIAC: S1, S2. LUNGS: Decreased breath sounds but good air entry, no rales or wheeze. ABDOMEN: With bowel sounds, soft, nontender. No rebound or guarding. EXTREMITIES: No edema. NEUROLOGIC: Awake, alert, and oriented. ASSESSMENT: An 81-year-old male came with syncopal episode and found to be anemic, status post 4 uni ts of packed RBCs. No reports of any overt GI bleed. So far, hemoglobin has been stable. He did tee ve a CT scan done and was negative for any acute intra-abdominal findings. PLAN: The family prefers patient to have GI workup done as an outpatient. Continue the stool soften er and heart healthy diet. He is being followed by neurology and cardiology for the syncope. The hong demetria was seen and discussed with Dr. Quiñones. Starr ABREU cc: [id number] TT: 02/20/2017 11:43:02 Confirmation # [id number] Dictation # [id number] julieth
[2017-02-20 12:48] VITALS: BP 159/74; RESP 20; TEMP 97.3
--- NOTE | 2017-02-20 14:03 | DS ---
FINAL DIAGNOSES: Syncope, iron deficiency anemia, chronic hypertension. DISPOSITION: Home with 24-hour supervision by family. Follow up with his PMD in 48 hours in [place], [place]. The patient's grandson, Johnnie Araya, phone number is [phone], is clearly aware that the patie nt needs outpatient followup of his blood pressure, blood work and GI evaluation for iron deficiency anemia. SUMMARY: This is an 81-year-old male who was admitted to [facility] through the Emer[facility] Room after a syncopal attack in the setting of hypotension and advanced iron deficiency anemia. Th e patient was transfused, seen in consultation by cardiology, Dr. Arellano, neurology, Dr. Hoffman, and gastroenterology, Dr. Quiñones. The patient's course was notable for stabilization of hypotension wi th IV fluids and discontinuation of outpatient antihypertensives and also patient received 4 units of packed red blood cells without incident. He was noted to have iron deficiency anemia by blood work and he had a CT of the abdomen and pelvis with oral contrast that was read by Dr. Ciro Tate from radiology as unremarkable. At the time of discharge, the patient is with vital signs of temperature 97.4, respirations 19, pulse 62, and blood pressure 129/72 and a pulse ox of 96% on room air. His ca rdiac monitor shows normal sinus rhythm. His labs show white count 5900, hemoglobin 11.4, hematocrit 35.7, platelets 209,000. Sodium 141, K 4.7, chloride 105, bicarbonate 30, BUN 16, creatinine 0.9, r andom blood sugar was 90. All liver function testing was normal including bilirubin 0.5, AST 23, ALT 25, alkaline phosphatase 75. His CPK was normal at 81. Troponin was less than 0.01. His percent s aturation was 10, iron level was low at 38, ferritin was 12.6 and B12 and folic acid levels were norm al at 752 and 12.7 respectively. Urinalysis was unremarkable. The patient is discharged to home to the care of his family who will provide 24-hour supervision. They are clearly aware of the need to f ollow up with his PMD regarding outpatient management of his blood pressure, anemia and that he may n eed reinstitution of antihypertensives as an outpatient and they are clearly aware that he needs a ga strointestinal followup for endoscopy and colonoscopy for completeness sake. All of this was reviewe d in detail with the patient and his grandson, Jonhnie Araya, and hopefully they will be compliant w ith the above recommendations. The patient is stable at present. All of the above was discussed in detail with his nurse, Adrienne Brenner. Greater than 50 minutes was spent in the care, coordination of care, review of care and discussion of care for this patient today. Sonia Larson MD cc: [id number] TT: 02/20/2017 14:03:13 rn
[2017-02-20 15:21] VITALS: PULSE 58
== END 2017-02-20 16:53 | disposition home or self-care (01) | DRG 812 ==
LOC: ED 14:34 → ERH 17:25 → 2RSO 21:42
PROVIDERS: ADMIT Internal Medicine; ATTEND Internal Medicine
PROC: 30233N1 Transfusion of Nonautologous Red Blood Cells into Peripheral Vein, Percutaneous Approach (ICD-10-PCS; principal; 2017-02-16)
DX: D50.9 Iron deficiency anemia, unspecified (principal); R55 Syncope and collapse; I35.0 Nonrheumatic aortic (valve) stenosis; I10 Essential (primary) hypertension; I25.10 Atherosclerotic heart disease of native coronary artery without angina pectoris; Z95.5 Presence of coronary angioplasty implant and graft; Z95.1 Presence of aortocoronary bypass graft